=== PATIENT | female | born 1960 | race Asian ===

== ENCOUNTER → 2020-02-14 10:49 | Outpatient (CLI) | payer OTHER, SELFPAY ==
--- NOTE | 2020-02-14 10:56 | DI.MRI.S_ITS ---
PROCEDURE: MR LUMBAR SPINE WO CON INDICATIONS: Dorsalgia, unspecified - left sided pain TECHNIQUE: Noncontrast sagittal T1 spin echo and T2 fast echo, sagittal STIR, axial T1 and T2 fast spin echo through the lumbar spine. In cases with scoliosis, additional coronal T2 fast spin echo may be performed. COMPARISON: None. FINDINGS: Image quality: Excellent. Alignment and Curvature: There is normal bony alignment. Bone Marrow: Marrow is of normal overall signal. No acute vertebral body compression fractures. Spinal Cord: Conus medullaris terminates at the L1-2 disc level. Visualized cord demonstrates normal signal and size. Paraspinous Soft Tissues: No paravertebral masses. L1-L2: Normal appearance. L2-L3: Normal appearance. L3-L4: Loss of disc signal. Mild, diffuse disc bulge. Mild narrowing of the central canal. Mild bilateral neural foraminal narrowing. No neural compression. L4-L5: Loss of disc signal. Mild, diffuse disc bulge. Mild bilateral facet hypertrophy. Mild narrowing of the central canal. Mild bilateral neural foraminal narrowing. No neural compression. Fissure noted in the posterior and left foraminal annulus. L5-S1: Loss of disc signal. Minimal, diffuse disc bulge. Mild bilateral facet hypertrophy. No central stenosis. Mild left neural foraminal narrowing. Small left foraminal disc protrusion. Disc protrusion abuts and slightly contours the exiting left L5 nerve root. IMPRESSION: 1. Multilevel degenerative disease. 2. Multilevel facet arthropathy. 3. No significant central canal narrowing. 4. Left L5-S1 disc protrusion of which abuts and slightly compresses the exiting left L5 nerve root. Please correlate with clinical data. 5. L4-L5 disc annulus fissures. Dictated by: Connie Spangler MD, PhD on 02/14/2020 at 16:11 Approved by: Connie Spangler MD, PhD on 02/14/2020 at 16:14
== END ==
PROVIDERS: PCP Physical Medicine & Rehabilitation Pain Medicine; Referring Provider Physical Medicine & Rehabilitation Pain Medicine; Visit Provider Physical Medicine & Rehabilitation Pain Medicine
DX: M54.9 Dorsalgia, unspecified (principal); M51.36 Other intervertebral disc degeneration, lumbar region; M47.816 Spondylosis without myelopathy or radiculopathy, lumbar region; M51.27 Other intervertebral disc displacement, lumbosacral region
CPT/HCPCS: 72148